=== PATIENT | male | born 1995 | race Caucasian/White ===

== ENCOUNTER 2017-02-12 17:39 | Emergency (ER) | payer MEDICAID ==
[~2017-02-12] VITALS: Ht 172.7 cm; Wt 68.0 kg
[~2017-02-12 17:39] MED LIST: IBUPROFEN 600M600 MG PO
--- NOTE | 2017-02-12 18:17 | Urgent Treatment Center Report ---
History of Present Issue Date/Time Seen by Provider 02/12/17 1759 Visit Reason Pt arrived:Walked Presenting Problem:PT C/O N/V, COUGH, AND CONGESTION X2 DAYS Location if Accident: Onset of symptoms date/time:/ or onset unknown for:MEDICAL HX UNKNOWN Have you (or family members/close friends) recently traveled outside the [place]? N If Yes, where/when: Have you had exposure to infectious disease within the past month? TB? Other? Specify: Patient state that he has not been feeling well since this morning. State that he has had nausea vomiting and some diarrhea and his throat is very sore. State that he began having a cough around mid-day that has continued. State that he was running a fever earlier and took some over the counter Medication and it helped to bring the fever down. States that he has continued to have vomiting and diarrhea on and off all day State that with all the coughing he has got his back/lungs hurting and worried that he may have pneumonia ALLERGIES Coded Allergies: No Known Allergies (02/12/17) Home Medications Active Scripts IBUPROFEN MICRONIZED (IBUPROFEN 600MG) 600 MG PO Q8HP PRN pain #20 TAB Prov: 11/17/15 History Medical History General CAD? No Angina: No DC: No Hypertension? No Hyperlipidemia? No CHF? No DVT? No PE? No COPD? No Asthma? No Anemia? No GERD? No Gastric ulcers? No GI Bleed? No Hernia? No Thyroid Problems? No Hypothyroidism? No CVA? No Seizures? No Diabetes? No Renal Insuffiency? No UTI? No Stones? No BPH? No GB Disease: No Nephritic Syndrome? No Asplenia? No Hepatitis? No Sickle Cell Disease? No Arthritis? No Migraines? No Cataracts? No Glaucoma? No MRSA? No HIV? No TB? No Anxiety? No Depression? No Cancer? No More? No Immunization HX DT/Tetanus 1-4 YRS Surgical Hx Previous Surgery?Y EYES Family History Family HX Diabetes Yes Hypertension Yes Cancer No TB No Social History Smoking Hx Smoker: Never Smoker Tobacco: No Alcohol Alcohol: No Review of Systems All Other Systems Reviewed and Negative Constitutional chills, fever ENT throat pain. Respiratory cough Gastrointestinal diarrhea, nausea, vomiting Musculoskeletal back pain Physical Exam Vital Signs Vital Signs Date Time Temp Pulse Resp B/P Pulse O2 O2 Flow FiO2 Ox Delivery Rate 02/12 1749 99.5 107 20 116/78 98 General Appearance Patient appears ill, sitting on exam table Ear, Nose, Throat sinus pain/drainage, nasal congestion, tonsillar exudate, Throat bright red, exudated noted, drainage noted in back of throat with tenderness noted maxillary sinuses Respiratory Status Yes: trachea midline, chest symmetrical, non tender chest. No: respiratory distress. Lung Sounds bilateral: normal breath sounds, lungs clear. 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 No Results/Orders Laboratory Tests 02/12/17 1758: Group A Strep Screen NOT DETECTED Current Medication Orders Sig/Raymond Start time Last Medication Dose Route Stop Time Status Admin Ondansetron HCl 4 MG ONCE ONE 02/12 181 DC 02/12 SL 02/12 181 181 Ondansetron HCl 0 .STK-MED ONE 02/12 181 DC .ROUTE Orders Procedure Date/time Status CHEST(2 VIEWS-NOT PORTABLE) 02/12 1800 Active [facility] STREP SCREEN 02/12 1800 Complete Progress [facility] Progress Notes Comment Nausea improved patient educated on diet to aid with vomiting and diarrhea and advised to drink plenty of fluids, over the counter Motrin or Tylenol for fever and return if symptoms persist Departure Departure Time of Disposition 1824 Disposition DC Home or Self Care(routine) Clinical Impression Primary Impression: Upper respiratory infection Qualifiers: URI type: acute pharyngitis Pharyngitis/tonsillitis etiology: unspecified etiology Qualified Code: J02.9 - Acute pharyngitis, unspecified Condition STABLE Patient Instructions DI for Cough -- Adult, DI for Nausea -- Adult, DI for Vomiting -- Adult, Diarrhea, Sore Throat Additional Instructions * Monitor Temp. Tylenol and/or Ibuprofen as needed. ER if fever is no less than 101 despite alternating Tylenol and Ibuprofen * Encourage fluids, water, Gatorade, powerade, pedialyte if infant/toddler/or child * Warm salt water gargles for throat irritation *Warm fluids *Sore throat lozenges *Sleep elevated *humidifier or vaporizer Follow up IMMEDIATELY for new or worsening of symptoms OR no noticeable improvement over the next 48-72 hours. 911 immediately for any life threatening symptoms such as chest pain or difficulty breathing Vomiting try very small amounts of water or suck on ice chips. diarrhea. children and infants should use products formulated for children, like oral rehydration solutions. Never give aspirin to children or teenagers with a viral illness. This can cause Dinh syndrome, a potentially life-threatening condition. Foods to eat when you have diarrhea When you have diarrhea, the foods that you eat and the foods that you avoid can be critical to helping you recover quicker. This is where BRAT foods come in. BRAT stands for bananas, rice, apples, toast. These foods are bland, so they wont aggravate the digestive system. Theyre also binding, to help firm up stool. Other foods that are included in the BRAT diet include: cooked cereal like cream of wheat or farina soda crackers applesauce and apple juice You also need to drink plenty of liquids so that you can stay hydrated and replace the fluids that youre losing. Drink lots of water and suck on ice chips. Other liquids that you can try include: clear broths, like chicken broth or beef broth, with any grease removed electrolyte-enhanced water or coconut water with vitamins or electrolytes (try to avoid ones high in sugar) solutions like Pedialyte weak, decaffeinated tea After youve started to recover, you can add in foods like scrambled eggs. Foods to avoid when you have diarrhea When youre experiencing diarrhea or recovering from it, there are a large number of foods that you want to avoid. These foods can trigger the digestive system and exacerbate or prolong diarrhea. Foods to avoid while experiencing diarrhea include: milk and dairy products (including milk-based protein drinks) fried, fatty, greasy foods spicy foods processed foods, especially those with additive foods pork and veal sardines raw vegetables rhubarb onions corn all citrus fruits other fruits, like pineapples, cherries, seeded berries, figs, currants, and grapes alcohol coffee, soda, and other caffeinated or carbonated drinks artificial sweeteners, including sorbitol Discharge Counseling Counseled pt/family regarding diagnosis, test results, medications/RX, home care, follow up needs Prescriptions Current Visit Scripts CEFDINIR (Cefdinir) 300 MG PO DAILY #20 CAP Fluticasone Propionate (Flonase 50 Mcg Nasal [place]) 2 SPRAY NA DAILY #1 BOT Ondansetron (Zofran 4MG Odt) 4 MG PO Q6HP PRN NAUSEA AND VOMITING #20 TAB GUAIFENESIN/DEXTROMETHORPHAN (Tussin Dm Cough Syrup) 10 ML PO Q4HP PRN cough #120 SYR at 1830
[2017-02-12] MEDS ORDERED: OMNICEF 300 MG300 MG PO (18:28)
[2017-02-12] MEDS ORDERED: GUAIFENESIN DM118 ML PO (18:28)
[2017-02-12] MEDS ORDERED: ZOFRAN ODT4 MG PO (18:28)
[2017-02-12] MEDS ORDERED: FLONASE 50 MCG16 GM (18:28)
[2017-02-12 18:38] VITALS: BP 116/78
--- NOTE | 2017-02-13 05:26 | RADIOLOGY REPORT PS360 ---
CHEST(2 VIEWS-NOT PORTABLE) HISTORY: congestion ORDERING PHYSICIAN: DANELLE DOOLEY APRN PATIENT AGE: 21 years COMPARISON: None available FINDINGS: The cardiomediastinal silhouette and pulmonary vascularity are within normal limits. The lungs are clear without infiltrates or pleural effusions. There is vague increased density overlying the anterior aspect of the right second rib and may be due to summation artifact from the rib and scapula. There is also nodular opacity in the right fifth interspace anteriorly possibly related to nipple shadow. This may be confirmed with follow-up. No acute bony abnormalities. IMPRESSION: 1. No acute finding. 2. Vague increased density over the right second rib anteriorly and in the right fifth interspace anteriorly as described above which may be due to artifacts. Cannot exclude underlying nodules. Consider follow-up to confirm resolution and/or stability
== END 2017-02-12 18:38 | disposition home or self-care (01) ==
LOC: UTC 17:39
DX: J02.9 Acute pharyngitis, unspecified (principal)